=== PATIENT | male | born 1985 | race African-American/Black ===

== ENCOUNTER 2025-02-28 13:46 | Inpatient (IN) | payer OTHER ==
[~2025-02-28] VITALS: Ht 185.4 cm; Wt 113.0 kg
[2025-02-28 14:04] VITALS: O2SAT 95
[2025-02-28] MEDS: ASPIRIN 81MG TABLET PO ONE (15:43)
[2025-02-28] MEDS: NITROGLYCERIN 0.4MG TABLET SL SL ONE (15:44)
[2025-02-28 16:26] LABS: BASOPHILS % 0.9 % (0.0-2.0); EOSINOPHILS % 7.3 % (0.0-5.0); HEMATOCRIT. 42.2 % (42.0-52.0); HEMOGLOBIN. 14.1 g/dL (14.0-18.0); LYMPHOCYTES % 20.2 % (20.0-50.0); MEAN PLATELET VOLUME 9.5 fl (7.4-10.4); MONOCYTES % 10.3 % (2.0-8.0); NEUTROPHILS % 61.3 % (40.0-76.0); PLATELET 221 x1000/uL (130-400); RED BLOOD CELL COUNT 4.70 mill/uL (4.7-6.1); RED CELL DISTRIBUTION WIDTH 13.9 % (11.6-14.6)
[2025-02-28 16:43] LABS: CREATININE 1.2 mg/dL (0.6-1.3); UREA NITROGEN BLOOD 16 mg/dL (9-23)
[2025-02-28 16:44] LABS: TROPONIN I HIGH SENSITIVITY 26 ng/L (3.0-53)
[2025-02-28 16:45] LABS: ASPARTATE AMINOTRANSFERASE 31 IU/L (<34)
[2025-02-28 16:46] LABS: BILIRUBIN DIRECT 0.2 mg/dL (<=3.0); BILIRUBIN TOTAL 0.6 mg/dL (0.1-1.0); PROTEIN TOTAL 7.7 g/dL (6.0-8.3)
[2025-02-28 17:06] LABS: CLARITY URINE CLEAR (CLEAR); COLOR URINE YELLOW (YELLOW); GLUCOSE URINE NEGATIVE (NEGATIVE); KETONES URINE NEGATIVE (NEGATIVE); LEUKOCYTE ESTERASE URINE NEGATIVE (NEGATIVE); NITRITE URINE NEGATIVE (NEGATIVE); OCCULT BLOOD URINE NEGATIVE (NEGATIVE); PH URINE 6.5 (4.5-8.0); PROTEIN URINE 1+ (NEGATIVE); SPECIFIC GRAVITY URINE 1.019 (1.005-1.030); UROBILINOGEN URINE 0.2 E.U./dL (0.2-1.0)
[2025-02-28 17:20] LABS: BACTERIA URINE NONE SEEN; RBC URINE 0-2 /hpf (0-2); SQUAMOUS EPITHELIAL CELL URINE RARE /lpf (RARE/1+); WBC URINE 0-2 /hpf (0-2)
[2025-02-28 18:35] VITALS: BP 183/116; PULSE 70; RESP 11; TEMP 36.7; O2SAT 97
[2025-02-28] MEDS: CLONIDINE 0.1MG TABLET PO PRN (19:11)
[2025-02-28] MEDS ORDERED: ATOR20TA65 PO (19:49)
[2025-02-28] MEDS ORDERED: FISH1CAP63 MT (19:49)
[2025-02-28] MEDS ORDERED: MAGN400T39 PO (19:49)
[2025-02-28] MEDS ORDERED: MULT-1146 MT (19:49)
[2025-02-28] MEDS ORDERED: LISI40TA21 PO (19:49)
[2025-02-28] MEDS ORDERED: BIOT10TA2 PO (19:49)
[2025-02-28] MEDS ORDERED: HYDR25TA PO (19:49)
[2025-02-28] MEDS ORDERED: METF-1149 PO (19:49)
[2025-02-28] MEDS ORDERED: METO-385 PO (19:49)
[2025-02-28 20:00] VITALS: BP 184/108; PULSE 66; RESP 12; TEMP 36.7; O2SAT 99
[2025-02-28 20:09] VITALS: BP 168/109; PULSE 71; RESP 17; TEMP 36.6; O2SAT 100
[2025-02-28] MEDS ORDERED: MAGNESIUM/ALUMINUM HYDROXIDE/SIMETHICONE 30ML UDC PO PRN (21:00)
[2025-02-28] MEDS ORDERED: GUAIFENESIN 200MG/10ML SUGAR FREE UDC PO PRN (21:00)
[2025-02-28] MEDS ORDERED: CLONIDINE 0.1MG TABLET PO PRN (21:00)
[2025-02-28] MEDS ORDERED: IPRATROPIUM/ALBUTEROL 0.5-3(2.5)MG/3ML NEB HHN PRN (21:00)
[2025-02-28] MEDS ORDERED: DOCUSATE SODIUM 100MG CAPSULE PO PRN (21:00)
[2025-02-28] MEDS ORDERED: ONDANSETRON HCL 4MG/2ML INJ IV PRN (21:00)
[2025-02-28] MEDS ORDERED: ACETAMINOPHEN 650MG/20.3ML UDC PO PRN (21:00)
[2025-02-28] MEDS ORDERED: DEXTROSE 50% WATER 50ML SYRINGE IV PRN (21:15)
[2025-02-28 21:37] VITALS: BP 184/108; PULSE 69; RESP 17; TEMP 36.696
[2025-02-28 22:25] VITALS: BP 172/129; PULSE 61; RESP 14; TEMP 36.6; O2SAT 96
[2025-02-28] MEDS: AMLODIPINE 10MG TABLET PO SCH (22:42)
[2025-02-28 23:43] LABS: *AMPHETAMINES SCREEN URINE NEGATIVE (NEGATIVE)
[2025-02-28 23:44] LABS: *BARBITURATES SCREEN URINE NEGATIVE (NEGATIVE); *BENZODIAZEPINES SCREEN URINE NEGATIVE (NEGATIVE); *COCAINE SCREEN URINE NEGATIVE (NEGATIVE); CANNABINOID URINE SCREEN NEGATIVE (NEGATIVE); ECSTASY MDMA SCREEN URINE NEGATIVE (NEGATIVE); METHADONE URINE SCREEN NEGATIVE (NEGATIVE); OPIATES URINE SCREEN NEGATIVE (NEGATIVE); PHENCYCLIDINE URINE SCREEN NEGATIVE (NEGATIVE)
[2025-03-01] VITALS (7 sets, daily range): BP systolic 147–177; BP diastolic 97–139; PULSE 65–98; RESP 12–17; TEMP 36.4–36.8; O2SAT 95–99
[2025-03-01] MEDS: HYDRALAZINE 20MG/ML VIAL IV PRN (01:24)
[2025-03-01 02:47] LABS: TROPONIN I HIGH SENSITIVITY 28 ng/L (3.0-53)
[2025-03-01 06:38] LABS: HEPATITIS C AB NON REACTIVE (Neg) (Negative)
[2025-03-01] MEDS: BLOOD SUGAR DIAGNOSTIC STRIP TEST SCH (06:54)
[2025-03-01] MEDS: INSULIN LISPRO 100 UNITS/ML SUBCUT SCH (06:55)
[2025-03-01 08:48] LABS: BASOPHILS % 1.2 % (0.0-2.0); EOSINOPHILS % 8.8 % (0.0-5.0); HEMATOCRIT. 43.6 % (42.0-52.0); HEMOGLOBIN. 14.4 g/dL (14.0-18.0); LYMPHOCYTES % 19.0 % (20.0-50.0); MEAN PLATELET VOLUME 10.1 fl (7.4-10.4); MONOCYTES % 9.2 % (2.0-8.0); NEUTROPHILS % 61.8 % (40.0-76.0); PLATELET 227 x1000/uL (130-400); RED BLOOD CELL COUNT 4.84 mill/uL (4.7-6.1); RED CELL DISTRIBUTION WIDTH 13.9 % (11.6-14.6)
[2025-03-01] MEDS ORDERED: LISINOPRIL 20MG TABLET PO SCH (09:00)
[2025-03-01] MEDS: PANTOPRAZOLE SODIUM 40 MG/VIAL IV SCH (09:01)
[2025-03-01] MEDS: HYDROCHLOROTHIAZIDE 25MG TABLET PO SCH (09:01)
[2025-03-01] MEDS: ATORVASTATIN CALCIUM 20MG TABLET PO SCH (09:01)
[2025-03-01] MEDS: LISINOPRIL 40MG TABLET PO SCH (09:03)
[2025-03-01 09:24] LABS: CREATININE 1.0 mg/dL (0.6-1.3); TRIGLYCERIDE 122 mg/dL (0-150); TROPONIN I HIGH SENSITIVITY 24 ng/L (3.0-53); UREA NITROGEN BLOOD 11 mg/dL (9-23)
[2025-03-01 09:25] LABS: LDL CHOLESTEROL 87 mg/dL (5-100)
[2025-03-01] MEDS: AMLODIPINE 5MG TABLET PO SCH (10:38)
[2025-03-01] MEDS: METOPROLOL SUCCINATE 50MG ER TABLET PO SCH (10:38)
[2025-03-01] MEDS ORDERED: NITROGLYCERIN 0.4MG TABLET SL SL PRN (11:30)
[2025-03-01] MEDS ORDERED: METOPROLOL TARTRATE 5MG/5ML VIAL IV PRN (18:15)
[2025-03-01] MEDS: ENOXAPARIN 40MG/0.4ML SYR SUBCUT SCH (21:27)
[2025-03-01 22:40] LABS: TROPONIN I HIGH SENSITIVITY 20 ng/L (3.0-53)
[2025-03-02] VITALS: BP 155/92; PULSE 67; RESP 19; TEMP 36.8; O2SAT 95
[2025-03-02 04:00] VITALS: BP 155/112; PULSE 68; RESP 18; TEMP 36.8; O2SAT 98
[2025-03-02 08:00] VITALS: BP 160/109; PULSE 68; RESP 20; TEMP 37; O2SAT 97
[2025-03-02 08:29] LABS: BASOPHILS % 0.8 % (0.0-2.0); EOSINOPHILS % 8.1 % (0.0-5.0); HEMATOCRIT. 42.6 % (42.0-52.0); HEMOGLOBIN. 14.3 g/dL (14.0-18.0); LYMPHOCYTES % 23.8 % (20.0-50.0); MEAN PLATELET VOLUME 10.1 fl (7.4-10.4); MONOCYTES % 8.6 % (2.0-8.0); NEUTROPHILS % 58.7 % (40.0-76.0); PLATELET 219 x1000/uL (130-400); RED BLOOD CELL COUNT 4.71 mill/uL (4.7-6.1); RED CELL DISTRIBUTION WIDTH 14.0 % (11.6-14.6)
[2025-03-02 09:01] LABS: CREATININE 1.2 mg/dL (0.6-1.3); UREA NITROGEN BLOOD 12 mg/dL (9-23)
[2025-03-02] MEDS ORDERED: LIDOCAINE HCL 1% 10 MG/ML 10ML VIAL ONE (11:10)
[2025-03-02 12:00] VITALS: BP 164/100; PULSE 78; RESP 16; TEMP 37.1; O2SAT 98
[2025-03-02 16:00] VITALS: BP 159/96; PULSE 82; RESP 19; TEMP 36.7; O2SAT 97
[2025-03-02] MEDS: ENOXAPARIN 40MG/0.4ML SYR SUBCUT SCH (17:58)
[2025-03-02 20:00] VITALS: BP 157/98; PULSE 73; RESP 15; TEMP 36.7; O2SAT 96
[2025-03-03] VITALS (7 sets, daily range): BP systolic 128–178; BP diastolic 89–114; PULSE 68–93; RESP 11–21; TEMP 36.6–36.9; O2SAT 95–98
[2025-03-03 06:56] LABS: BASOPHILS % 0.9 % (0.0-2.0); EOSINOPHILS % 7.5 % (0.0-5.0); HEMATOCRIT. 43.0 % (42.0-52.0); HEMOGLOBIN. 14.5 g/dL (14.0-18.0); LYMPHOCYTES % 24.0 % (20.0-50.0); MEAN PLATELET VOLUME 9.6 fl (7.4-10.4); MONOCYTES % 11.0 % (2.0-8.0); NEUTROPHILS % 56.6 % (40.0-76.0); PLATELET 201 x1000/uL (130-400); RED BLOOD CELL COUNT 4.77 mill/uL (4.7-6.1); RED CELL DISTRIBUTION WIDTH 14.0 % (11.6-14.6)
[2025-03-03 07:09] LABS: CREATININE 1.3 mg/dL (0.6-1.3)
[2025-03-03 07:10] LABS: UREA NITROGEN BLOOD 15 mg/dL (9-23)
[2025-03-03] MEDS ORDERED: AMLO5TAB88 PO (11:56)
[2025-03-03] MEDS: AMLODIPINE 5MG TABLET PO SCH (13:45)
== END 2025-03-03 17:11 | disposition home or self-care (01) | DRG 392 ==
LOC: ER 13:53 → EDBEDREQ 15:53 → EDBEDREQTM 17:49 → 3WST 18:39
PROVIDERS: ADMIT Internal Medicine; ATTEND Internal Medicine
PROC: 02HV33Z Insertion of Infusion Device into Superior Vena Cava, Percutaneous Approach (ICD-10-PCS; principal; 2025-03-02)
PROC: B548ZZA Ultrasonography of Superior Vena Cava, Guidance (ICD-10-PCS; 2025-03-02)
DX: K21.9 Gastro-esophageal reflux disease without esophagitis (principal); D72.10 Eosinophilia, unspecified; E11.65 Type 2 diabetes mellitus with hyperglycemia; E66.01 Morbid (severe) obesity due to excess calories; E78.5 Hyperlipidemia, unspecified; I11.9 Hypertensive heart disease without heart failure; I16.0 Hypertensive urgency; I50.9 Heart failure, unspecified; K76.0 Fatty (change of) liver, not elsewhere classified; G47.33 Obstructive sleep apnea (adult) (pediatric); Z68.32 Body mass index [BMI] 32.0-32.9, adult; Z79.84 Long term (current) use of oral hypoglycemic drugs; Z79.899 Other long term (current) drug therapy; Z82.49 Family history of ischemic heart disease and other diseases of the circulatory system; Z87.891 Personal history of nicotine dependence; Z91.199 Patient's noncompliance with other medical treatment and regimen due to unspecified reason; Z98.2 Presence of cerebrospinal fluid drainage device
CPT/HCPCS: 36415; 36573; 71045; 76700; 80048; 80061; 80076; 80305; 81003; 82962; 83036; 83880; 84443; 84484; 85025; 85379; 86705; 87340; 93005; 93306; 93970; 99285; A4606; C1725; C1769; J0360; J1650; J2003; J2470